=== PATIENT | male | born 1960 | race Caucasian/White ===

== ENCOUNTER → 2017-05-26 11:18 | Outpatient (CLI) | payer OTHER, SELFPAY ==
--- NOTE | 2017-05-26 16:13 | STRESSREP_ITS ---
Stress Test Report Exercise stress test. 56-year-old man with a history of chest pain. Medications aspirin pantoprazole. Stress protocol: Resting EKG demonstrates normal sinus rhythm with a rate of 75 bpm normal intervals and noted resting blood pressure is 136/98 mmHg. The patient exercised according to regular Ernst protocol for total duration of 7 minutes completing 1 minute into stage III of the Ernst protocol. The maximum heart rate attained was 162 bpm which was 98% of the maximum predicted work heart rate. The maximum workload was 8.5 metabolic equivalents. Patient maintained sinus rhythm throughout the recording. At rest there were no ST or T-wave changes noted suggest ischemia peak exercise no ST or T-wave changes were noted suggest ischemia. No clinical angina was noted. The resting blood pressure was 136/98 with a peak blood pressure 164/96 mmHg. Rate pressure product was 21 ,600. The patient experienced minimal atypical chest discomfort. Conclusion: Exercise stress test with no EKG criteria for ischemia at a moderate to high workload No clinical angina noted No arrhythmias noted.
== END ==
PROVIDERS: Family Provider Family Medicine; PCP Family Medicine; Visit Provider Family Medicine
DX: R07.9 Chest pain, unspecified (principal)
CPT/HCPCS: 93017

== ENCOUNTER → 2017-08-04 11:08 | Outpatient (CLI) | payer OTHER, SELFPAY ==
--- NOTE | 2017-08-04 11:12 | RAD_ITS ---
STUDY: X-RAY - LUMBAR SPINE REASON FOR EXAM: Male, 56 years old. Chronic lower back pain. TECHNIQUE: 5 view(s) of the lumbar spine were obtained. COMPARISON: August 06, 2016 FINDINGS: Normal lumbar lordosis. There is no substantial scoliosis. There is a normal alignment of the vertebrae. There is multilevel endplate spondylosis of the lumbar vertebrae. There is multi-level degenerative disc disease with multi-level disc space narrowing. The soft tissue structures are unremarkable. RAD/L/S Spine Min 4 Views IMPRESSION: Degenerative changes of the spine, as detailed above. Electronically Signed: Heidy Price MD at 20:36 EDT Tel , Service support ,
[2017-08-04 15:15] LABS: Anion Gap 7 (5-15); BUN 14 mg/dL (7-18); BUN/Creat Ratio 14.3 RATIO (10-20); Calcium,Total 8.5 mg/dL (8.5-10.1); Chloride 107 mmol/L (98-107); Cholesterol 183 mg/dL (200); Creatinine, Serum 0.98 mg/dL (0.70-1.30); EST Glomerular Filtration Rate 84 mL/min (>60); Est Glom Filt Rate - Afr Amer 101 mL/min (>60); Glucose 99 mg/dL (74-106); High Density Lipoprotein 34 mg/dL; PSA,Total - Annual Screen 1.56 ng/mL (0.00-4.00); Potassium 4.2 mmol/L (3.5-5.1); Sodium Level 142 mmol/L (136-145); Triglycerides 142 mg/dL; Very Low Density Lipoprotein 28 mg/dL (5-40)
== END ==
PROVIDERS: Family Provider Family Medicine; PCP Family Medicine; Visit Provider Family Medicine
DX: Z13.220 Encounter for screening for lipoid disorders (principal); Z13.1 Encounter for screening for diabetes mellitus; N41.1 Chronic prostatitis; M54.5 Low back pain
CPT/HCPCS: 36415; 72110; 80048; 80061; 84153; G0103

== ENCOUNTER → 2018-07-09 10:14 | Outpatient (CLI) | payer OTHER, SELFPAY ==
--- NOTE | 2018-07-09 10:20 | RAD_ITS ---
STUDY: X-RAY - LEFT ANKLE REASON FOR EXAM: Male, 57 years old. Ankle pain. TECHNIQUE: 3 view(s) of the ankle. COMPARISON: None. FINDINGS: Normal visualized distal tibia and fibula. Normal medial and lateral malleoli. Normal tibiotalar articulation and ankle mortise. There is a plantar calcaneal enthesophyte present. There is an additional enthesophyte arising from the posterior calcaneus at the Achilles tendon insertion. There are mild degenerative changes of the mid foot. The soft tissue structures are unremarkable. RAD/Ankle min 3 Views IMPRESSION: Degenerative changes. Electronically Signed: Heidy Price MD at 17:55 EDT Tel , Service support ,
--- NOTE | 2018-07-09 10:20 | RAD_ITS ---
STUDY: X-RAY - RIGHT ANKLE REASON FOR EXAM: Male, 57 years old. Pain. TECHNIQUE: 3 view(s) of the ankle. COMPARISON: None. FINDINGS: Normal visualized distal tibia and fibula. Normal medial and lateral malleoli. Normal tibiotalar articulation and ankle mortise. There is a plantar calcaneal enthesophyte present. There is an additional enthesophyte arising from the posterior calcaneus at the Achilles tendon insertion site. There are mild degenerative changes of the midfoot. The soft tissue structures are unremarkable. RAD/Ankle min 3 Views IMPRESSION: Degenerative changes. Electronically Signed: Heidy Price MD at 17:57 EDT Tel , Service support ,
== END ==
PROVIDERS: Family Provider Family Medicine; PCP Family Medicine; Referring Provider Family Medicine; Visit Provider Family Medicine
DX: M25.579 Pain in unspecified ankle and joints of unspecified foot (principal)
CPT/HCPCS: 73610

== ENCOUNTER 2018-10-20 10:00 | Outpatient (RCR) | payer OTHER, SELFPAY ==
--- NOTE | 2018-09-11 11:51 | HP.PTEVAL ---
Patient's Visit Information DALE MATA is a 57 year old M referred to Physical Therapy by Grupo Meyer MD with a diagnosis of HAGLUNDS DEFORMITY TIM. Date of Evaluation: 09/11/18 Physical Therapist: Michelle Siddiqi PT, Cert MDT - Visit Plan Frequency: 2x /Week Duration: 4-6 Weeks Plan: TRIAL OF AQUATIC THERAPY FOR A FEW VISITS FOR TIM HEEL DESENSATIZATION, SWELLING REDUCTION, PAIN REDUCTION, AND GENTLE TIM ANKLE ROM AND STRENGTHEING. PATIENT PREFERRED TO TRY WATER BEFORE OTHER MODALITIES BUT MAY NEED TO TRY US, STM AND IONTOPHORESIS WITH 4 ML OF DEXAMETHASONE IF NOT PROGRESSING. PATIENT WAS AGREEABLE TO THIS POC. 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 Disability: ON [employer] DISABILITY 50% FOR BACK ISSUES. Present symptoms: LEFT > RIGHT HEEL PAIN. Present since: ABOUT 2-3 MONTHS AND WORSENING. Pain Scale: WORST 6/10, LEAST 1/10. Currently: 2/10. Commenced as a result of: HEEL SPURS. Symptoms at onset: RIGHT HEEL. Worse: INITIATING GAIT AFTER SITTING AND IN THE MORNING. Better: BEING ON THE MOVE. Disturbed sleep: YES. Previous history/Previous treatment: UNREMARKABLE. Gait: PAINFUL ON INITIATION. Accidents: NO. Unexplained weight loss: NO. Imaging: RECENT TIM FOOT X-RAYS - HEEL SPURS. PMH: UNREMARKABLE - Objective THIS PATIENT AMBULATES INDEP'LY INTO PT WITH DECREASED CADANCE AND DECREASED TIM STRIDE LENGTH. HE HAS VERY SWOLLEN TIM HEALS IN THE REGIONS OF THE ACHILLES INSERTIONS. THIS AREA IS ALSO VERY TENDER TO THE TOUCH. HE HAS SHOE INSERTS WHICH HE REPORTS HAVE HELPED SOME. TIM LE STRENGTH IS GROSSLY 5/5 WITH MMT'ING EXCEPT ANKLE PLANTAR FLEXION GRADED 4/5 WITH CAREFUL TESTING. HE HAS SURPRISINGLY GOOD ANKLE ROM ALL PLANES EXCEPT EVERSION WHICH IS LIMITED TO ABOUT 5 DEG BILATERALLY. HE REALLY DOES NOT HAVE C/O INCREASED PAIN WITH TIM LE ROM AND STRENGTH TESTING BUT AGAIN HIS HEELS ARE VERY SWOLLEN AND TENDER. - Goals Goal 1:: DECREASE C/O TIM HEAL PAIN Goal Time Frame: 4-6 Weeks Goal 2:: IMPROVE PERSONAL CARE, LIFTING, WEIGHT BEARING AFTER NON WEIGHT BEARING, STANDING, SLEEP, SOCIAL LIFE, TRAVEL AND WORK FUNCTION Goal Time Frame: 4-6 Weeks Goal 3:: INSTRUCT IN PROPHYLAXIS Goal Time Frame: 4-6 Weeks - Rehabilitation Potential Rehabilitation Potential: Fair - Anticipated Interventions Patient/Client Instruction: Educate patient on: Condition, Plan of Care, Risk Factors, Benefits of Fitness Program For the Purpose of:: To improve self management Therapeutic Exercise to Include: Strength training, Flexibilty training, Gait and locomotor training, In an aquatic setting, Active ROM For the Purpose of:: To decrease pain, To decrease swelling/inflammation, To increase ROM, To improve muscle performance and motor function, To increase tolerance to activity/condition/position, To improve ability of physical actions for home/community/work/leisure, To improve gait and locomotor functions Iontophoresis (with Dexamethozone, with Acetic acid): Yes - DEXAMETHASONE Cryotherapy (ice pack, ice massage): Yes Thermo therapy (hot pack): Yes Ultrasound (thermal/non thermal): Yes For the Purpose of:: To decrease pain, To decrease swelling/inflammation, To improve nutrient delivery to tissue Thank you for the opportunity to evaluate your patient. For Medicare and Medicare HMO plans, please review the plan of care and approve it. It will need to be FAXED BACK to us at [phone] for Medicare purposes. For Medicare only, by signing this I certify the plan of care. Please let me know if there are questions or concerns regarding this plan of care. Physician Signature: Date:
--- NOTE | 2018-10-20 10:49 | HP.PTDCSUM ---
HP - PT D/C Summary It has been my pleasure to treat DALE MATA under orders from Grupo Latham MD, for the diagnosis of HAGLUNDS DEFORMITY TIM for a total of 11 visit(s). Discharge Date: 10/20/18 Please see the following information for a summary of their discharge status. - Subjective Subjective: Present symptoms: LEFT > RIGHT HEEL PAIN. Present since: ABOUT 4 MONTHS NOW - UNCHANGING. Pain Scale: WORST 6/10, LEAST 2/10. Currently: 10. Commenced as a result of: HEEL SPURS TO THE BEST OF PATIENTS KNOWLEGE. Symptoms at onset: RIGHT HEEL. Worse: INITIATING GAIT AFTER SITTING AND IN THE MORNING. Better: BEING ON THE MOVE. Disturbed sleep: YES. Previous history/Previous treatment: PHYSICAL THERAPY ONLY. Gait: PAINFUL ON INITIATION. Accidents: NO. Unexplained weight loss: NO. Imaging: RECENT TIM FOOT X-RAYS - HEEL SPURS. PMH: UNREMARKABLE. PATIENT REPORTS ABOUT 15% IMPROVEMENT WITH PHYSICAL THERAPY AT THE MOST. - Pain R heel Pain Intensity (Out of 10): 1 L heel Pain Intensity (Out of 10): 3 - Overall Improvement % Improvement: 15 - Objective Objective/Function: UPON EXAM TODAY THERE ARE REALLY NO OBJECTIVE OR SUBJECTIVE SIGNIFICANT CHANGES SINCE INITIAL EVAL DESPITE APPROX 10 SESSION OF THERAPY THAT HAVE INCLUDED TRIALS OF AQUATIC THERAPY, ULTRASOUND, IONTOPHORESIS, LAND THER EX AND HOME EX INSTRUCTION. HE IS STILL VERY TENDER TO THE TOUCH IN TIM ACHILLES AREAS WITH LIGHT PALPATION AND THERE IS OBVIOUS SWELLING IN THESE AREAS. PATIENT IS HOWEVER NOT WORSE WITH THE EX'S AND REPORTS VERY SMALL IMPROVEMENT SO WE HAVE RECOMMENDED HE CONTINUE HIS CURRENT HEP WHILE PURSUING OTHER TREATMENT OPTIONS WITH DR. LATHAM. - Goals Goal 1:: DECREASE C/O TIM HEAL PAIN Goal Progress: Not Progressing Goal 2:: IMPROVE PERSONAL CARE, LIFTING, WEIGHT BEARING AFTER NON WEIGHT BEARING, STANDING, SLEEP, SOCIAL LIFE, TRAVEL AND WORK FUNCTION Goal Progress: Not Progressing Goal 3:: INSTRUCT IN PROPHYLAXIS Goal Progress: Not Progressing - Plan Plan: D/C DUE TO LACK OF SIGNIFICANT IMPROVEMENT. PHYSICIAN RE-ASSESSMENT RECOMMENDED. PATIENT AGREEABLE. - D/C Information If there are questions or concerns regarding this patient's physical therapy, please feel free to call me at [phone]. Thank you for the referral of this patient. Sincerely, Michelle Siddiqi, PT, Cert MDT
== END 2018-10-20 12:41 | disposition home or self-care (01) ==
LOC: PT 10:00
PROVIDERS: Family Provider Family Medicine; PCP Family Medicine; Referring Provider Family Medicine; Visit Provider Family Medicine
DX: M92.61 Juvenile osteochondrosis of tarsus, right ankle (principal)
CPT/HCPCS: 97035; 97110; 97113; 97161; 97530

== ENCOUNTER → 2019-03-05 08:19 | Outpatient (CLI) | payer OTHER, SELFPAY ==
[2019-03-01 09:27] VITALS: BMI 33.3
--- NOTE | 2019-03-05 08:19 | CT_ITS ---
STUDY: CT ABDOMEN AND PELVIS WITH CONTRAST REASON FOR EXAM: Male, 58 years old. LLQ and LUQ PAIN X YEARS RADIATION DOSAGE (If Supplied By Facility): CTDIvol = ( 14.37 ) mGy, DLP = ( 1143.86 ) mGycm TECHNIQUE: Transaxial images were obtained from the dome of the diaphragm to the symphysis pubis without oral contrast. Oral and amp; IV READ II-CAT and amp; 100ML ISOVUE 300 was administered. Sagittal and coronal images were reconstructed. Individualized dose optimization techniques were used for this CT. COMPARISON: None. FINDINGS: The visualized lung bases are unremarkable. Coronary artery calcification. Normal liver. There are surgical clips in the gallbladder fossa consistent with a prior cholecystectomy. Normal spleen. Normal pancreas. Normal bilateral adrenal glands. Normal right kidney. Normal left kidney. There is a left retroaortic renal vein. Normal visualized stomach. Normal small intestine. There are multiple colonic diverticula consistent with diverticulosis. The appendix is visualized and appears normal. Normal abdominal aorta. Normal inferior vena cava. There is borderline retroperitoneal lymphadenopathy with enlarged nodes no greater than 10mm in the short axis diameter. Normal urinary bladder. Small bilateral renal arteries containing fat. There are mild degenerative changes of the visualized lumbar spine. CT/Abdomen/Pelvis WITH Contrast IMPRESSION: Sigmoid diverticulosis. Electronically Signed: Olu Horner, at 15:32 EST , Service support ,
== END ==
PROVIDERS: PCP Family Medicine; Referring Provider Surgery; Visit Provider Surgery
DX: R10.32 Left lower quadrant pain (principal)
CPT/HCPCS: 74177; Q9967